=== PATIENT | female | born 1955 | race Caucasian/White ===

== ENCOUNTER 2020-12-25 09:17 | Emergency (ER) | payer BC ==
[2020-12-25] MEDS ORDERED: Diazepam 10 MG/2 ML SYRINGE ONE (10:18)
[2020-12-25] MEDS ORDERED: Ketorolac Tromethamine 30 MG/ML VIAL ONE (10:19)
[2020-12-25] MEDS ORDERED: Morphine 4 MG/ML VIAL ONE (11:05)
== END 2020-12-25 11:09 | disposition home or self-care (01) ==
LOC: MADERS 09:17
DX: S33.5XXA Sprain of ligaments of lumbar spine, initial encounter (principal); J44.9 Chronic obstructive pulmonary disease, unspecified; F17.210 Nicotine dependence, cigarettes, uncomplicated; X58.XXXA Exposure to other specified factors, initial encounter
CPT/HCPCS: 72100; 72220; 96372; J1885; J2270; J3360

== ENCOUNTER 2023-06-02 11:12 | Emergency (ER) | payer OTHER | END 2023-06-02 13:00 | disposition left against medical advice (07) | LOC: MADERS 11:12 | DX: Z53.21 Procedure and treatment not carried out due to patient leaving prior to being seen by health care provider (principal) ==

== ENCOUNTER 2023-06-02 14:48 | Emergency (ER) | payer OTHER | END 2023-06-02 15:48 | disposition home or self-care (01) | LOC: MADERS 14:48 | DX: S82.831A Other fracture of upper and lower end of right fibula, initial encounter for closed fracture (principal); S80.02XA Contusion of left knee, initial encounter; S80.01XA Contusion of right knee, initial encounter; F17.210 Nicotine dependence, cigarettes, uncomplicated; W01.0XXA Fall on same level from slipping, tripping and stumbling without subsequent striking against object, initial encounter | CPT/HCPCS: 29515 ==

== ENCOUNTER 2025-01-22 11:07 | Emergency (ER) | payer OTHER ==
[2025-01-22] MEDS ORDERED: Acetaminophen 325 MG TAB ONE (11:50)
== END 2025-01-22 12:40 | disposition home or self-care (01) ==
LOC: MADERS 11:07
DX: S82.042A Displaced comminuted fracture of left patella, initial encounter for closed fracture (principal); J44.9 Chronic obstructive pulmonary disease, unspecified; F17.210 Nicotine dependence, cigarettes, uncomplicated; V87.8XXA Person injured in other specified noncollision transport accidents involving motor vehicle (traffic), initial encounter; Y93.89 Activity, other specified; Y92.89 Other specified places as the place of occurrence of the external cause; Z79.51 Long term (current) use of inhaled steroids
CPT/HCPCS: 99283